=== PATIENT | female | born 1980 | race Caucasian/White ===

== ENCOUNTER 2016-07-15 19:49 | Emergency (ER) | payer MEDICAID ==
[~2016-07-15] VITALS: Ht 152.4 cm; Wt 124.5 kg
[2016-07-15] MEDS ORDERED: KETOROLAC TROMETHAMINE 60 MG/2 ML VIAL IM ONE (22:00)
[2016-07-15 22:37] VITALS: BP 126/68
== END 2016-07-15 22:39 | disposition home or self-care (01) ==
LOC: EMS 19:50
DX: S83.92XA Sprain of unspecified site of left knee, initial encounter (principal); Z88.5 Allergy status to narcotic agent; X58.XXXA Exposure to other specified factors, initial encounter; Y93.89 Activity, other specified; Y92.89 Other specified places as the place of occurrence of the external cause; Y99.8 Other external cause status
CPT/HCPCS: 29530; 73562; 81025; 96372; 99284; J1885

== ENCOUNTER 2025-01-01 18:26 | Emergency (ER) | payer OTHER ==
[~2025-01-01] VITALS: Ht 154.9 cm; Wt 108.0 kg
[~2025-01-01 18:26] MED LIST: CETI10TA58 PO; CYCL5TAB3 PO; DULO30CA89 PO; HYDR25TA82 PO; IBUP-2070 PO; LID5O TP; LIDO1ADH63 TD; LISI10TA24 PO; METF-81 PO; METH-812 PO; TIRZ2.5P SQ
[2025-01-01 18:31] VITALS: TEMP 98.1
[2025-01-01 19:20] LABS: PLATELET COUNT (AUTO) 368 K/uL (150-450); RED BLOOD CELL COUNT(AUTO) 5.17 MIL/uL (4.00-5.20); RED CELL DISTRIBUTION WIDTH 17.3 % (11.5-14.5); WHITE BLOOD COUNT (AUTO) 12.9 K/uL (4.5-11.0)
[2025-01-01 19:21] LABS: APPEARANCE,URINE HAZY (CLEAR); GLUCOSE, URINE (UA) NEGATIVE (NEGATIVE); LEUKOCYTE ESTERASE ,URINE SMALL (NEGATIVE); NITRATE,URINE NEGATIVE (NEGATIVE); OCCULT BLOOD,URINE NEGATIVE (NEGATIVE); SPECIFIC GRAVITIY, URINE 1.027 (1.003-1.030)
[2025-01-01 19:29] LABS: CALCIUM, TOTAL 8.3 mg/dL (8.8-10.5); CREATININE 0.84 mg/dL (0.60-1.30); GLOMERULAR FILTR. RATE CALC > 60 mL/min (>60); GLUCOSE,RANDOM 136 mg/dL (70-110); SODIUM SERUM 136 mmol/L (136-145); UREA NITROGEN, BLOOD 9 mg/dL (7-18)
[2025-01-01 19:59] LABS: SQUAMOUS EPITHELIAL CELL,UR Few /LPF (None Seen)
[2025-01-01] MEDS: SODIUM CHLORIDE 0.9% 1,000 ML IV ONE (21:40)
[2025-01-01] MEDS: ONDANSETRON HCL 4 MG/2 ML VIAL IVP ONE (21:40)
[2025-01-02] MEDS ORDERED: POLY119P3 PO (00:07)
[2025-01-02 00:10] VITALS: BP 124/74; PULSE 88; RESP 18; O2SAT 98
== END 2025-01-02 00:42 | disposition home or self-care (01) ==
LOC: EMS 18:26
DX: K52.9 Noninfective gastroenteritis and colitis, unspecified (principal); K59.00 Constipation, unspecified; R11.2 Nausea with vomiting, unspecified; I10 Essential (primary) hypertension; E11.9 Type 2 diabetes mellitus without complications; Z88.5 Allergy status to narcotic agent; Z98.51 Tubal ligation status; Z79.85 Long-term (current) use of injectable non-insulin antidiabetic drugs; Z79.899 Other long term (current) drug therapy
CPT/HCPCS: 99285; 74176; 96374; 96361; 96375; 80048; 81001; 83690; 84703; 85025; 36415; J1171; J2405; J7030